=== PATIENT | male | born 1955 | race Caucasian/White ===

== ENCOUNTER 2018-03-23 01:58 | Emergency (ER) | payer OTHER ==
[2018-03-23] MEDS: HYDROcodone/APAP 5/325MG 1 TAB TABLET PO ×2 (02:43)
[2018-03-23] MEDS: IBUPROFEN 800 MG TABLET. PO ×2 (02:43)
== END 2018-03-23 03:35 | disposition home or self-care (01) ==
LOC: ER 01:58
DX: S22.31XA Fracture of one rib, right side, initial encounter for closed fracture (principal); S60.211A Contusion of right wrist, initial encounter; S80.211A Abrasion, right knee, initial encounter; M25.521 Pain in right elbow; W18.39XA Other fall on same level, initial encounter; W10.1XXA Fall (on)(from) sidewalk curb, initial encounter; Y93.02 Activity, running; Y92.59 Other trade areas as the place of occurrence of the external cause; Y92.511 Restaurant or cafe as the place of occurrence of the external cause; Y99.8 Other external cause status
CPT/HCPCS: 29125; 71101; 73080; 73110; 99284; G0238